=== PATIENT | male | born 1950 | race Caucasian/White ===

== ENCOUNTER 2018-11-05 07:53 | Inpatient (IN) | payer OTHER ==
[~2018-11-05] VITALS: Ht 177.8 cm; Wt 90.9 kg
[2018-11-05 08:19] LABS: CLARITY,URINE CLOUDY (Clear); COLOR,URINE YELLOW (Yellow); GLUCOSE, URINE NEGATIVE (Neg); KETONES,URINE TRACE mg/dl (Neg); LEUKOCYTE ESTERASE ,URINE MODERATE (Neg); NITRITES, URINE POSITIVE (Neg); OCCULT BLOOD,URINE MODERATE (Neg); PROTEIN,URINE 100 mg/dl (Neg)
[2018-11-05 08:22] LABS: UA COLLECTION TYPE CLN CATCH MIDSTREAM
[2018-11-05] MEDS ORDERED: acetaminophen 325mg tablet PO ONE (08:25)
[2018-11-05 08:31] LABS: SQUAMOUS EPITHELIAL CELL,UR FEW /LPF (FEW); WBC,URINE TNTC /HPF (0-4)
[2018-11-05 08:32] LABS: BACTERIA,URINE 2+ /HPF (Neg)
[2018-11-05 08:34] LABS: WBC CLUMPS,URINE MANY /HPF (NEGATIVE)
[2018-11-05] MEDS ORDERED: CefTRIAXone 1000mg IM Kit (w/lidocaine diluent) IM ONE (08:35)
[2018-11-05 08:42] LABS: BASOPHILS # (AUTO) 0.1 X10'3 (0-0.2); BASOPHILS % (AUTO) 0.6 % (0-1); EOSINOPHILS % (AUTO) 0 % (0-6); HEMATOCRIT 46.2 % (42.0-52.0); HEMOGLOBIN 15.1 g/dl (14.0-17.9); LYMPHOCYTES # (AUTO) 0.9 X10'3 (1.1-4.8); LYMPHOCYTES % (AUTO) 6.7 % (21-51); MEAN CORPUSCULAR HGB CONC 32.7 g/dL (33.0-36.5); MEAN CORPUSCULAR VOLUME 85.6 FL (78-98); MEAN PLATELET VOLUME 9.2 FL (7.4-10.4); MONOCYTES # (AUTO) 0.8 X10'3 (0-0.9); MONOCYTES % (AUTO) 6.2 % (2-12); NEUTROPHILS # (AUTO) 11.7 X10'3 (1.8-7.7); NEUTROPHILS % (AUTO) 86.5 % (42-75); PLATELET COUNT 181 X10'3 (140-440); RED CELL DISTRIBUTION WIDTH 14.5 % (11.5-14.5); WHITE BLOOD COUNT 13.6 X10'3 (4.5-11.0)
[2018-11-05] MEDS ORDERED: normal saline 1000ML IV soln IVB ONE (08:50)
[2018-11-05 08:52] LABS: ALANINE AMINOTRANSFERASE 17 U/L (12-78); ALBUMIN 3.6 G/DL (3.4-5.0); ALBUMIN/GLOBULIN RATIO 0.9 (1.1-1.5); ALKALINE PHOSPHATASE 79 IU/L (46-116); ANION GAP 10 (8-16); ASPARTATE AMINO TRANSFERASE 16 U/L (10-37); BILIRUBIN,TOTAL 1.3 MG/DL (0.1-1.0); BLOOD UREA NITROGEN 24 MG/DL (7-18); BUN/CREATININE RATIO 10.8 (5.4-32.0); CALCIUM 9.6 MG/DL (8.5-10.1); CHLORIDE 105 MMOL/L (99-107); CREATININE 2.23 MG/DL (0.60-1.10); GLUCOSE 115 MG/DL (70-104); POTASSIUM 4.7 MMOL/L (3.5-5.1); SODIUM 142 MMOL/L (135-145); TOTAL CARBON DIOXIDE 26.8 MMOL/L (24-32); TOTAL PROTEIN 7.7 G/DL (6.4-8.2); eGFR 29 ML/MIN
[2018-11-05] MEDS ORDERED: CefTRIAXone/D5W-Rocephin 1gm 50 ML IV ONE (09:00)
--- NOTE | 2018-11-05 11:50 | NUR ---
relieving RN for lunch, pt is in CT
[2018-11-05] MEDS: normal saline 1000ml 1,000 ML IV SCH ×2 (12:07→20:12)
[2018-11-05] MEDS ORDERED: magnesium hydroxide 30ml (MOM) UD suspension PO PRN (12:10)
[2018-11-05] MEDS ORDERED: ondansetron/PF 4mg/2ml inj IV PRN (12:10)
[2018-11-05] MEDS ORDERED: acetaminophen 325mg tablet PO PRN (12:10)
[2018-11-05] MEDS ORDERED: mag hydrox/Alum hydrox/simeth 30ml oral suspension PO PRN (12:10)
[2018-11-05] MEDS ORDERED: NO HOME MEDS (12:12)
--- NOTE | 2018-11-05 12:12 | NUR ---
PT BACK FROM CT, PHARMACIST AT BEDSIDE
--- NOTE | 2018-11-05 14:30 | NUR ---
Received report from SEPIDEH Dey in ED. Received patient from ED into [facility], vitals being taken. Pt denies pain. Will continue to monitor.
[2018-11-05 14:45] VITALS: BP 125/73
--- NOTE | 2018-11-05 17:00 | NUR ---
Received tele call that patient's HR up into 140s-went to assess patient, patient asymptomatic-up to bathroom. HR now 128. Dr. Sr notified. no further orders at this time.
--- NOTE | 2018-11-05 18:37 | NUR ---
Patient in room [facility]. I have received report from SEPIDEH Rose and had the opportunity to ask questions and assume patient care. Addendum: 11/05/18 at 1837 by Amber Ahumada RN Amended: Links added.
--- NOTE | 2018-11-05 18:40 | NUR ---
Problems reprioritized. Patient report given, questions answered & plan of care reviewed with Ana Donahue RN.
[2018-11-05 20:00] VITALS: BP 113/73
[2018-11-05] MEDS: heparin, porcine 5000 units/ml vial SQ SCH (20:00)
[2018-11-06 00:35] VITALS: BP 114/60
[2018-11-06 05:14] LABS: BASOPHILS % (AUTO) 0.4 % (0-1); EOSINOPHILS # (AUTO) 0.1 X10'3 (0-0.9); EOSINOPHILS % (AUTO) 0.7 % (0-6); HEMATOCRIT 38.4 % (42.0-52.0); HEMOGLOBIN 12.8 g/dl (14.0-17.9); LYMPHOCYTES # (AUTO) 1.1 X10'3 (1.1-4.8); LYMPHOCYTES % (AUTO) 10.5 % (21-51); MEAN CORPUSCULAR HEMOGLOBIN 28.4 PG (27.0-31.0); MEAN CORPUSCULAR HGB CONC 33.5 g/dL (33.0-36.5); MEAN CORPUSCULAR VOLUME 84.8 FL (78-98); MEAN PLATELET VOLUME 9.1 FL (7.4-10.4); MONOCYTES # (AUTO) 0.9 X10'3 (0-0.9); MONOCYTES % (AUTO) 9.1 % (2-12); NEUTROPHILS # (AUTO) 7.9 X10'3 (1.8-7.7); NEUTROPHILS % (AUTO) 79.3 % (42-75); PLATELET COUNT 106 X10'3 (140-440); RED BLOOD COUNT 4.52 X10'6 (4.70-6.10); RED CELL DISTRIBUTION WIDTH 14.4 % (11.5-14.5)
[2018-11-06 05:28] LABS: ALBUMIN 2.4 G/DL (3.4-5.0); ANION GAP 9 (8-16); BLOOD UREA NITROGEN 23 MG/DL (7-18); BUN/CREATININE RATIO 13.5 (5.4-32.0); CHLORIDE 109 MMOL/L (99-107); CREATININE 1.71 MG/DL (0.60-1.10); GLUCOSE 100 MG/DL (70-104); POTASSIUM 4.1 MMOL/L (3.5-5.1); SODIUM 143 MMOL/L (135-145); TOTAL CARBON DIOXIDE 24.6 MMOL/L (24-32); eGFR 40 ML/MIN
[2018-11-06] MEDS: normal saline 1000ml 1,000 ML IV SCH ×2 (05:47→16:54)
--- NOTE | 2018-11-06 06:04 | NUR ---
Problems reprioritized. Patient report given, questions answered & plan of care reviewed with SEPIDEH Najera. Addendum: 11/06/18 at 0604 by Amber Ahumada RN Amended: Links added.
--- NOTE | 2018-11-06 06:26 | NUR ---
Patient in room [facility]. I have received report from Licha Garner RN and had the opportunity to ask questions and assume patient care.
[2018-11-06 07:00] VITALS: BP 93/54
[2018-11-06] MEDS: CefTRIAXone/D5W-Rocephin 1gm 50 ML IV SCH (07:13)
[2018-11-06] MEDS: heparin, porcine 5000 units/ml vial SQ SCH ×2 (07:14→20:09)
[2018-11-06 11:00] VITALS: BP 116/77
--- NOTE | 2018-11-06 18:12 | NUR ---
Patient in room [facility]. I have received report from SEPIDEH GARNER and had the opportunity to ask questions and assume patient care. Addendum: 11/06/18 at 1815 by Amber Ahumada RN Amended: Links added.
--- NOTE | 2018-11-06 18:30 | NUR ---
Problems reprioritized. Patient report given, questions answered & plan of care reviewed with Licha Garner RN.
[2018-11-06 20:00] VITALS: BP 151/89
[2018-11-06] MEDS: lactobacillus rhamnosus 10,000 MMU CELLS/CAPSULE PO SCH (20:09)
[2018-11-07] VITALS: BP 117/67
[2018-11-07] MEDS: normal saline 1000ml 1,000 ML IV SCH (02:46)
[2018-11-07 04:57] LABS: BASOPHILS % (AUTO) 0.3 % (0-1); EOSINOPHILS # (AUTO) 0.2 X10'3 (0-0.9); EOSINOPHILS % (AUTO) 4.5 % (0-6); HEMATOCRIT 37.8 % (42.0-52.0); HEMOGLOBIN 12.6 g/dl (14.0-17.9); LYMPHOCYTES # (AUTO) 0.7 X10'3 (1.1-4.8); MEAN CORPUSCULAR HEMOGLOBIN 28.6 PG (27.0-31.0); MEAN CORPUSCULAR HGB CONC 33.5 g/dL (33.0-36.5); MEAN CORPUSCULAR VOLUME 85.5 FL (78-98); MEAN PLATELET VOLUME 9.5 FL (7.4-10.4); MONOCYTES # (AUTO) 0.6 X10'3 (0-0.9); MONOCYTES % (AUTO) 11.2 % (2-12); NEUTROPHILS # (AUTO) 3.8 X10'3 (1.8-7.7); PLATELET COUNT 107 X10'3 (140-440); RED BLOOD COUNT 4.42 X10'6 (4.70-6.10); RED CELL DISTRIBUTION WIDTH 14.1 % (11.5-14.5); WHITE BLOOD COUNT 5.3 X10'3 (4.5-11.0)
[2018-11-07 05:15] LABS: ALBUMIN 2.3 G/DL (3.4-5.0); ANION GAP 9 (8-16); BLOOD UREA NITROGEN 21 MG/DL (7-18); BUN/CREATININE RATIO 14.4 (5.4-32.0); CALCIUM 7.7 MG/DL (8.5-10.1); CHLORIDE 109 MMOL/L (99-107); CREATININE 1.46 MG/DL (0.60-1.10); GLUCOSE 99 MG/DL (70-104); POTASSIUM 4.1 MMOL/L (3.5-5.1); SODIUM 142 MMOL/L (135-145); TOTAL CARBON DIOXIDE 24.2 MMOL/L (24-32); eGFR 48 ML/MIN
--- NOTE | 2018-11-07 06:35 | NUR ---
Problems reprioritized. Patient report given, questions answered & plan of care reviewed with SEPIDEH Montez.
[2018-11-07 07:18] VITALS: BP 133/85
[2018-11-07] MEDS: CefTRIAXone/D5W-Rocephin 1gm 50 ML IV SCH (08:50)
[2018-11-07] MEDS: lactobacillus rhamnosus 10,000 MMU CELLS/CAPSULE PO SCH (08:50)
[2018-11-07] MEDS: heparin, porcine 5000 units/ml vial SQ SCH (08:51)
[2018-11-07] MEDS ORDERED: CIPR-230 PO (10:30)
[2018-11-07 11:50] VITALS: BP 130/86
--- NOTE | 2018-11-07 13:30 | NUR ---
PT DISCHARGED WITH ALL PERSONAL BELONGING AND NEW PRESCRIPTION, A & O WITHOUT COMPLAINS OF PAIN.
== END 2018-11-07 13:30 | disposition home or self-care (01) | DRG 872 ==
LOC: ER 07:54 → SUR 3N 14:36 → CMPBEDREQ 19:46
PROVIDERS: ADMIT Family Medicine; ATTEND Family Medicine
DX: A41.9 Sepsis, unspecified organism (principal); N17.9 Acute kidney failure, unspecified; N39.0 Urinary tract infection, site not specified; Q60.0 Renal agenesis, unilateral; B96.1 Klebsiella pneumoniae [K. pneumoniae] as the cause of diseases classified elsewhere; N18.9 Chronic kidney disease, unspecified; Z90.5 Acquired absence of kidney
CPT/HCPCS: 36415; 74176; 80048; 80053; 81001; 83605; 84145; 85025; 85610; 87040; 87077; 87081; 87088; 87186; 99285; G0378; J0696; J1644; J7030